=== PATIENT | male | born 1970 | race Caucasian/White ===

== ENCOUNTER 2016-05-05 23:15 | Emergency (ER) | payer MEDICARE, MEDICAID | END 2016-05-06 00:18 | disposition home or self-care (01) | LOC: D.ER 23:15 | DX: M54.5 Low back pain (principal); W01.0XXA Fall on same level from slipping, tripping and stumbling without subsequent striking against object, initial encounter; Y93.89 Activity, other specified; Y92.019 Unspecified place in single-family (private) house as the place of occurrence of the external cause; E78.5 Hyperlipidemia, unspecified; E03.9 Hypothyroidism, unspecified; I10 Essential (primary) hypertension; F41.9 Anxiety disorder, unspecified ==